=== PATIENT | female | born 1980 | race Caucasian/White ===

== ENCOUNTER 2017-10-24 19:19 | Emergency (ER) | payer OTHER, SELFPAY ==
[2017-10-24] MEDS ORDERED: Ketorolac Tromethamine 30 MG/ML VIAL ONE (20:10)
[2017-10-24 20:34] LABS: Bilirubin Small (Negative); Blood, Urine Negative (Negative); Clarity CLEAR (Clear); Glucose, Urine (Dipstick) Negative (Negative); Leukocyte Small (Negative); Nitrite Positive (Negative); Protein, Urine (Dipstick) Trace mg/dL (Neg-Trace)
[2017-10-24 20:36] LABS: Bacteria/HPF 4+ HPF (None Seen); Hyaline Casts/LPF 0-3 HYALINE CAST LPF (0-3 Hyaline); Pathc Cast-AUWi Flag 0.43 (0-2.49); RBC/HPF 0-3 HPF (0-3); Squamous Epithelial 0-3 HPF (0-3); WBC/HPF 21-50 HPF (0-3)
[2017-10-24] MEDS ORDERED: traMADol HCl 50 MG TAB ONE (21:01)
[2017-10-24] MEDS ORDERED: Ondansetron ODT 4 MG TAB ONE (21:31)
--- NOTE | 2017-10-24 21:42 | ULT ---
PELVIC ULTRASOUND: 10/24/17 HISTORY: Status post hysterectomy and left oophorectomy. Right lower quadrant pain. FINDINGS: The right ovary measures 5.1 x 3.8 x 4.1 cm. Flow is demonstrated to the right ovary. No free fluid i s seen in the pelvis. There is a 3.7 x 2.2 x 3.7 cm right ovarian cystic mass with lower level internal echoes. IMPRESSION: Right ovarian cystic mass measuring 3.7 x 2.2 x 3.7 cm. A followup exam is recommended in 8-10 weeks. POS: [facility]
== END 2017-10-24 21:41 | disposition home or self-care (01) ==
LOC: ERS 19:19
DX: N83.201 Unspecified ovarian cyst, right side (principal); N30.00 Acute cystitis without hematuria; E11.9 Type 2 diabetes mellitus without complications; E03.9 Hypothyroidism, unspecified; K21.9 Gastro-esophageal reflux disease without esophagitis; J44.9 Chronic obstructive pulmonary disease, unspecified; F17.200 Nicotine dependence, unspecified, uncomplicated; F41.9 Anxiety disorder, unspecified
CPT/HCPCS: 76856; 81003; 81015; 96374; J1885; Q0162

== ENCOUNTER 2018-07-13 08:20 | Outpatient (CLI) | payer OTHER ==
--- NOTE | 2018-07-13 09:37 | RAD ---
CHEST TWO VIEWS: History: Cough. Bronchospasm. Comparison: 05-17-16 FINDINGS: Cardiac silhouette and pulmonary vasculature are unremarkable. Mediastinum is midline. Lobulation rig ht hemidiaphragm is similar in appearance to the prior study. Skin piercings overlie the chest. No co nfluent airspace consolidation, pneumothorax, or pleural fluid. IMPRESSION: No active cardiopulmonary abnormalities are demonstrated. POS: [facility]
== END 2018-07-13 08:21 | disposition home or self-care (01) ==
LOC: RAD-FRANK 08:20
PROVIDERS: ATTEND Nurse Practitioner Family
DX: J20.9 Acute bronchitis, unspecified (principal)
CPT/HCPCS: 71046

== ENCOUNTER 2018-07-30 07:52 | Outpatient (CLI) | payer OTHER ==
--- NOTE | 2018-07-30 09:18 | RAD ---
PA AND LATERAL CHEST RADIOGRAPH: Date: 07-30-18 History: Follow up pneumonia. Comparison: 07-13-18 FINDINGS: Again noted is eventration of the medial and anterior aspect of the right hemidiaphragm. Linear densi ties are present at the left lung base which may be related to mild atelectasis or scarring. Lungs ar e otherwise clear. No consolidation or pleural fluid is appreciated. There are metallic densities ove rlying the upper chest as well as mid aspect of the mediastinum which were also seen with prior study on the lateral view suggesting that these metallic densities represent external jewelry. Cardiac silhouette and pulmonary vasculature are within normal limits. No other interval change. IMPRESSION: Mild linear densities at the left lung base which may be related to atelectasis. However, given the c oncern for pneumonia, short interval follow up examination may be helpful to ensure this resolves and does not represent a developing area of pneumonitis. POS: [facility]
== END 2018-07-30 07:53 | disposition home or self-care (01) ==
LOC: RAD-FRANK 07:52
PROVIDERS: ATTEND Nurse Practitioner Family
DX: J15.7 Pneumonia due to Mycoplasma pneumoniae (principal); J98.4 Other disorders of lung
CPT/HCPCS: 71046

== ENCOUNTER 2018-09-15 11:09 | Outpatient (CLI) | payer OTHER ==
--- NOTE | 2018-09-15 11:59 | RAD ---
TWO VIEW CHEST: Indication: Pneumonia. Fever. Comparison: 07-30-18 FINDINGS: There is patchy left basilar density. Elevation of the medial and right hemidiaphragm is similar. Car diac silhouette is of normal size. There are radiopaque densities overlying the anterior chest wall. There is mild osseous degenerative change. IMPRESSION: 1. Stable chest. 2. Patchy left basilar density is similar in appearance. POS: [facility]
== END 2018-09-15 11:10 | disposition home or self-care (01) ==
LOC: RAD-FRANK 11:09
PROVIDERS: ATTEND Nurse Practitioner Family
DX: R50.9 Fever, unspecified (principal); R91.8 Other nonspecific abnormal finding of lung field
CPT/HCPCS: 71046